=== PATIENT | male | born 2000 | race Caucasian/White ===

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

== ENCOUNTER 2019-03-09 11:08 | Emergency (ER) | payer SELFPAY ==
[~2019-03-09] VITALS: Ht 175.3 cm; Wt 99.8 kg
[2019-03-09] MEDS: IV NS 1000 ML 1,000 ML IV ONE (11:32)
[2019-03-09] MEDS ORDERED: DEXAMETHASONE SOD PHOSPHATE 10 MG INJ ONE (11:40)
[2019-03-09] MEDS: DEXAMETHASONE SOD PHOSPHATE 4 MG INJ IV ONE (11:40)
[2019-03-09] MEDS ORDERED: IBUPROFEN 600 MG TABLET ONE (11:40)
[2019-03-09] MEDS: IBUPROFEN 600 MG TABLET PO ONE (11:40)
[2019-03-09 11:50] LABS: *MONOTEST NEGATIVE (NEGATIVE)
--- NOTE | 2019-03-09 12:25 | NUR ---
Patient discharged to home in stable conditon. Written and verbal after care instructions given. Patient verbalizes understanding of instructions.pt walsk i nsteady gait. pt says feels better. pt with mother.
[2019-03-09 12:26] VITALS: BP 117/61
== END 2019-03-09 12:27 | disposition home or self-care (01) ==
LOC: ER 11:08
DX: J02.9 Acute pharyngitis, unspecified (principal); H92.03 Otalgia, bilateral; J45.909 Unspecified asthma, uncomplicated
CPT/HCPCS: 36415; 86308; 86403; 87070; 96374; 99283; J1100; A4663; J7030

== ENCOUNTER 2021-10-30 10:05 | Emergency (ER) | payer MEDICAID ==
[~2021-10-30] VITALS: Ht 175.3 cm; Wt 113.4 kg
--- NOTE | 2021-10-30 10:12 | NUR ---
at bedside to examine pt.
[2021-10-30] MEDS ORDERED: DEXAMETHASONE SOD PHOSPHATE 4 MG INJ IM ONE (10:15)
[2021-10-30] MEDS ORDERED: AMOX-427 PO (10:17)
[2021-10-30] MEDS ORDERED: DEXAMETHASONE SOD PHOSPHATE 10 MG INJ ONE (10:21)
--- NOTE | 2021-10-30 10:44 | NUR ---
Both pt. and his mother refused mono test. stating "It will always be positive."
--- NOTE | 2021-10-30 10:45 | NUR ---
DCD instructions given to pt and his mother who remained at bedside during visit. pt. left room [id number].
== END 2021-10-30 10:47 | disposition home or self-care (01) ==
LOC: ER 10:05
DX: J02.9 Acute pharyngitis, unspecified (principal); J45.909 Unspecified asthma, uncomplicated
CPT/HCPCS: 86403; 87070; 96372; 99283; J1100; A4663

== ENCOUNTER 2022-03-26 16:30 | Emergency (ER) | payer OTHER ==
[~2022-03-26] VITALS: Ht 175.3 cm; Wt 99.8 kg
[~2022-03-26 16:30] MED LIST: AMOX-427 PO
[2022-03-26] MEDS ORDERED: DEXAMETHASONE SOD PHOSPHATE 10 MG INJ ONE (16:58)
[2022-03-26] MEDS ORDERED: CLINDAMYCIN 600 MG PIGGYBACK**ER OMNI IV ONE (16:58)
[2022-03-26] MEDS ORDERED: KETOROLAC TROMETHAMINE 15 MG INJ ONE (16:58)
[2022-03-26] MEDS ORDERED: KETOROLAC TROMETHAMINE 15 MG INJ IVP ONE (17:00)
[2022-03-26] MEDS ORDERED: CLINDAMYCIN PHOSPHATE IV 600 MG in IV DEXTROSE 5% 100 ML IV ONE (17:00)
[2022-03-26] MEDS ORDERED: DEXAMETHASONE SOD PHOSPHATE 4 MG INJ IV ONE (17:00)
[2022-03-26 17:18] LABS: HEMATOCRIT 44.3 % (36.7-47.1); MEAN CORPUSCULAR HEMOGLOBIN 28.7 uug (23.8-33.4); MEAN CORPUSCULAR VOLUME 83.7 fL (73.0-96.2); PLATELET COUNT (AUTO) 226 K/uL (152-348)
[2022-03-26 17:24] LABS: CREATININE 0.9 mg/dL (0.6-1.3)
[2022-03-26] MEDS ORDERED: PRED20TA PO (18:04)
[2022-03-26] MEDS ORDERED: CLIN300C12 PO (18:04)
[2022-03-26 18:26] VITALS: BP 89/70
--- NOTE | 2022-03-26 18:26 | NUR ---
IV removed. Catheter intact and site benign. Pressure and 4x4 gauze applied to site. No bleeding noted. Patient discharged to home in stable condition. Written and verbal after care instructions given. Patient verbalizes understanding of instructions. Stressed follow up or return to ER for worsening s/s.
== END 2022-03-26 18:26 | disposition home or self-care (01) ==
LOC: ER 16:30
DX: J03.91 Acute recurrent tonsillitis, unspecified (principal); J45.909 Unspecified asthma, uncomplicated; D72.829 Elevated white blood cell count, unspecified
CPT/HCPCS: 99284; 96365; 96375; 80048; 85025; 86403; 87070; 36415; J3490; J1100; J1885; A4663

== ENCOUNTER 2022-08-31 13:45 | Emergency (ER) | payer MEDICAID ==
[~2022-08-31] VITALS: Ht 175.3 cm; Wt 95.3 kg
[~2022-08-31 13:45] MED LIST changes: +CLIN300C12 PO; +PRED20TA PO
[2022-08-31] MEDS ORDERED: IV NORMAL SALINE 1000 ML BAG IV ONE (14:15)
[2022-08-31] MEDS ORDERED: ONDANSETRON 4 MG/2 ML VIAL IV ONE (14:15)
[2022-08-31] MEDS ORDERED: ACETAMINOPHEN ES 500 MG TABLET PO ONE (14:15)
[2022-08-31] MEDS ORDERED: FAMOTIDINE. 20 MG/2 ML VIAL IV ONE ×2 (14:15→14:28)
[2022-08-31] MEDS ORDERED: ONDANSETRON 4 MG/2 ML VIAL ONE (14:28)
--- NOTE | 2022-08-31 14:36 | NUR ---
PT IS IN ROOM #1A. DR MILLER EVALUATED THE PT.
[2022-08-31 14:53] LABS: HEMATOCRIT 48.7 % (36.7-47.1); MEAN CORPUSCULAR HEMOGLOBIN 28.9 uug (23.8-33.4); MEAN CORPUSCULAR VOLUME 82.9 fL (73.0-96.2); PLATELET COUNT (AUTO) 199 K/uL (152-348)
[2022-08-31 15:09] LABS: BILIRUBIN,DIRECT 0.1 mg/dL (0.0-0.2); BILIRUBIN,TOTAL 0.5 mg/dL (0.2-1.0); CREATININE 0.9 mg/dL (0.6-1.3); POTASSIUM 4.2 mmol/L (3.5-5.1); TOTAL PROTEIN, SERUM 7.9 g/dL (6.4-8.2)
[2022-08-31 16:05] LABS: *BILIRUBIN,URIN NEGATIVE (NEGATIVE); *BLOOD, URINE NEGATIVE (NEGATIVE); *CLARITY,URINE CLEAR (CLEAR); *COLOR,URINE YELLOW (YELLOW); *KETONES,URINE NEGATIVE (NEGATIVE); *UROBILINOGEN,URINE 0.2 E.U./dl (NORMAL); LEUKOCYTE ESTERASE ,URINE NEGATIVE (NEGATIVE); NITRITE, URINE NEGATIVE (NEGATIVE); UGLUCOSE NEGATIVE (NEGATIVE)
[2022-08-31] MEDS ORDERED: ONDA4TAB11 PO (16:18)
--- NOTE | 2022-08-31 17:27 | NUR ---
PT WAS D/C'd TO HOME. D/C INSTRUCTIONS GIVEN TO THE PT BY DR MILLER.
[2022-08-31 17:28] VITALS: BP 135/79
== END 2022-08-31 17:29 | disposition home or self-care (01) ==
LOC: ER 13:47
DX: B34.9 Viral infection, unspecified (principal); J45.909 Unspecified asthma, uncomplicated
CPT/HCPCS: 99284; 96374; 71046; 96361; 96375; 87804 ×2; 80076; 80048; 81003; 83690; 85025; 85730; 36415; J3490; J2405; J7040 ×2; A4663; A9150

== ENCOUNTER 2022-10-23 13:44 | Emergency (ER) | payer MEDICAID ==
[~2022-10-23] VITALS: Ht 175.3 cm; Wt 95.3 kg
[~2022-10-23 13:44] MED LIST changes: +ONDA4TAB11 PO
--- NOTE | 2022-10-23 14:25 | NUR ---
PT IS IN ROOM #2B. DR RAMAN EVALUATED THE PT.
[2022-10-23 14:34] LABS: HEMATOCRIT 44.9 % (36.7-47.1); MEAN CORPUSCULAR HEMOGLOBIN 28.3 uug (23.8-33.4); MEAN CORPUSCULAR VOLUME 83.1 fL (73.0-96.2); PLATELET COUNT (AUTO) 231 K/uL (152-348)
[2022-10-23 14:46] LABS: CREATININE 0.9 mg/dL (0.6-1.3); POTASSIUM 3.7 mmol/L (3.5-5.1)
[2022-10-23 14:52] LABS: BILIRUBIN,DIRECT 0.1 mg/dL (0.0-0.2); BILIRUBIN,TOTAL 0.4 mg/dL (0.2-1.0); TOTAL PROTEIN, SERUM 7.1 g/dL (6.4-8.2)
[2022-10-23 15:17] LABS: *BILIRUBIN,URIN NEGATIVE (NEGATIVE); *BLOOD, URINE NEGATIVE (NEGATIVE); *CLARITY,URINE CLEAR (CLEAR); *COLOR,URINE YELLOW (YELLOW); *KETONES,URINE 1+ (NEGATIVE); *UROBILINOGEN,URINE 0.2 E.U./dl (NORMAL); LEUKOCYTE ESTERASE ,URINE NEGATIVE (NEGATIVE); NITRITE, URINE NEGATIVE (NEGATIVE); UGLUCOSE NEGATIVE (NEGATIVE)
[2022-10-23] MEDS ORDERED: DICY10CA13 PO (15:59)
--- NOTE | 2022-10-23 16:29 | NUR ---
PT WAS D/C'd TO HOME. D/C INSTRUCTIONS GIVEN TO THE PT BY DR RAMAN.
[2022-10-23 16:31] VITALS: BP 137/70
== END 2022-10-23 16:32 | disposition home or self-care (01) ==
LOC: ER 13:44
DX: R10.31 Right lower quadrant pain (principal); J45.909 Unspecified asthma, uncomplicated; Z79.2 Long term (current) use of antibiotics; Z79.899 Other long term (current) drug therapy
CPT/HCPCS: 36415; 83690; 85025; A4663

== ENCOUNTER 2023-11-11 07:46 | Emergency (ER) | payer MEDICAID, OTHER ==
[~2023-11-11] VITALS: Ht 175.3 cm; Wt 84.4 kg
[~2023-11-11 07:46] MED LIST changes: +DICY10CA13 PO
[2023-11-11] MEDS ORDERED: AMOX-430 PO (08:39)
[2023-11-11] MEDS ORDERED: IBUP-1955 PO (08:39)
[2023-11-11] MEDS ORDERED: DEXAMETHASONE SOD PHOSPHATE 4 MG INJ ONE (08:40)
[2023-11-11] MEDS ORDERED: KETOROLAC TROMETHAMINE 15 MG INJ ONE (08:41)
[2023-11-11] MEDS: DEXAMETHASONE SOD PHOSPHATE 4 MG INJ IM ONE (08:48)
[2023-11-11] MEDS: KETOROLAC TROMETHAMINE 15 MG INJ IM ONE (08:49)
[2023-11-11 08:57] VITALS: BP 120/78; TEMP 98; O2SAT 99
== END 2023-11-11 08:57 | disposition home or self-care (01) ==
LOC: ER 07:46
DX: J02.9 Acute pharyngitis, unspecified (principal); J45.909 Unspecified asthma, uncomplicated; D64.9 Anemia, unspecified; Z79.899 Other long term (current) drug therapy
CPT/HCPCS: 99284; 86403; 87070; 96372 ×2; J1100; J1885; 87077; A4606; A4663

== ENCOUNTER 2023-11-23 09:21 | Emergency (ER) | payer OTHER ==
[~2023-11-23] VITALS: Ht 175.3 cm; Wt 81.6 kg
[~2023-11-23 09:21] MED LIST changes: +AMOX-430 PO; +IBUP-1955 PO
[2023-11-23] MEDS ORDERED: OXYCODONE/APAP 5-325 MG TABLET ONE (10:31)
[2023-11-23] MEDS: OXYCODONE/APAP 5-325 MG TABLET PO ONE (10:34)
[2023-11-23 11:15] LABS: BASOPHILS % (AUTO) 0.1 % (0.0-2.0); CALCIUM 8.6 mg/dL (8.5-10.1); CARBON DIOXIDE 26 mmol/L (21-32); CHLORIDE 103 mmol/L (98-107); CREATININE 0.8 mg/dL (0.6-1.3); DIFFERENTIAL COMMENT 1; GLUCOSE 98 mg/dL (74-106); HEMATOCRIT 43.4 % (36.7-47.1); HEMOGLOBIN 15.1 g/dL (12.5-16.3); LYMPHOCYTES # (AUTO) 1.2 K/uL (0.8-4.8); MEAN CORPUSCULAR HEMOGLOBIN 29.3 uug (23.8-33.4); MEAN CORPUSCULAR HGB CONC 35 g/dL (32.5-36.3); MEAN CORPUSCULAR VOLUME 84.3 fL (73.0-96.2); MONOCYTES # (AUTO) 1.5 K/uL (0.1-1.30); MONOCYTES % (AUTO) 10.8 % (0.0-11.0); NEUTROPHILS # (AUTO) 10.9 K/uL (1.8-8.9); NEUTROPHILS % (AUTO) 80.1 % (38.5-71.5); PLATELET COUNT (AUTO) 195 K/uL (152-348); POTASSIUM 4.2 mmol/L (3.5-5.1); RED BLOOD CELL COUNT(AUTO) 5.15 MIL/uL (4.06-5.63); RED CELL DISTRIBUTION WIDTH 13.7 % (12.1-16.2); SODIUM SERUM 138 mmol/L (136-145); UREA NITROGEN, BLOOD 7 mg/dL (7-18); WHITE BLOOD COUNT (AUTO) 13.6 K/uL (3.6-10.2)
[2023-11-23 11:22] LABS: ALANINE AMINOTRANSFERASE 12 U/L (16-63); ALBUMIN 3.4 g/dL (3.4-5.0); ALKALINE PHOSPHATASE 67 U/L (50-136); ASPARTATE AMINOTRANSFERASE < 5 U/L (15-37); BILIRUBIN,DIRECT 0.1 mg/dL (0.0-0.2); BILIRUBIN,TOTAL 0.5 mg/dL (0.2-1.0); TOTAL PROTEIN, SERUM 7.2 g/dL (6.4-8.2)
[2023-11-23 11:48] LABS: *MONOTEST NEGATIVE (NEGATIVE)
[2023-11-23] MEDS ORDERED: CEFTRIAXONE /D5W 50ML IVPB **ER PYXIS IV ONE (12:04)
[2023-11-23] MEDS ORDERED: DEXAMETHASONE SOD PHOSPHATE 10 MG INJ ONE (12:04)
[2023-11-23] MEDS ORDERED: METRONIDAZOLE 500 MG/NS 100ML 100 ML IV ONE (12:04)
[2023-11-23] MEDS: DEXAMETHASONE SOD PHOSPHATE 4 MG INJ IV ONE (12:09)
[2023-11-23] MEDS: CEFTRIAXONE 1 G in IV DEXTROSE 5% 50 ML IV ONE (12:09)
[2023-11-23] MEDS: IV NS 1000 ML 1,000 ML IV ONE (12:09)
[2023-11-23] MEDS: METRONIDAZOLE 500 MG/NS 100 ML PIGGYBACK IV ONE (12:39)
[2023-11-23] MEDS ORDERED: METR500T PO (14:07)
[2023-11-23] MEDS ORDERED: CEPH500C2 PO (14:07)
[2023-11-23] MEDS ORDERED: HYDR-3980 PO (14:07)
[2023-11-23 14:15] VITALS: O2SAT 99
== END 2023-11-23 14:17 | disposition home or self-care (01) ==
LOC: ER 09:23
DX: J03.90 Acute tonsillitis, unspecified (principal); J45.909 Unspecified asthma, uncomplicated; D64.9 Anemia, unspecified; Z79.899 Other long term (current) drug therapy
CPT/HCPCS: 99284; 96365; 96367; 96375; 80076; 80048; 85025; 86308; 36415; J0696; J1100; J3490; J7040 ×2; A4606; A4663